=== PATIENT | female | born 1950 | race Caucasian/White ===

== ENCOUNTER 2017-04-23 17:20 | Observation (INO) | payer MEDICARE, OTHER ==
[~2017-04-23] VITALS: Ht 167.6 cm; Wt 113.5 kg
[2017-04-23] VITALS (8 sets, daily range): BP systolic 96–134; BP diastolic 52–66; PULSE 64–75; RESP 18; TEMP 98.5; O2SAT 95–97
[~2017-04-23 17:20] MED LIST: FURO20 PO; JANU50TA PO; LEVO.05 PO; LEXA10TA PO; LISI2.5T3 PO
--- NOTE | 2017-04-23 17:35 | PD ---
Physical Exam Date Seen by Provider: Apr 23, 2017 Time Seen by Provider: 17:33 Narrative 66 YOWF C/O CP AND SOB. H/O CAD . SYMPTOMS TODAY. 04/17 PAIN VS REVIEWED WAITING FOR BED PLACEMENT Data Data Last Documented VS Vital Signs Date Time Temp Pulse Resp B/P Pulse Ox O2 Delivery O2 Flow Rate FiO2 04/23/17 17:23 98.5 75 18 134/66 96 Room Air MDM Supervised Visit with [facility]: Don Baumann Apr 23, 2017 17:35
--- NOTE | 2017-04-23 18:08 | RADRPT ---
EXAM DATE/TIME: 04/23/2017 17:57 [facility] COMPARISON: No previous studies available for comparison. INDICATIONS : Chest pain. MEDICAL HISTORY : A-fib. SURGICAL HISTORY : None. ENCOUNTER: Initial ACUITY: 1 day PAIN SCORE: 8/10 LOCATION: middle chest. FINDINGS: PA and lateral views of the chest demonstrate the lungs to be symmetrically aerated without evidence of mass, infiltrate or effusion. The cardiomediastinal contours are unremarkable. Osseous structure s are intact. Mild atherosclerotic calcifications are noted in the aorta. There is mild atelectasis a nd/or scarring at the lung bases. There are multiple surgical clips and fred in the right breast w ith asymmetry of the breast shadows. CONCLUSION: No acute disease. Casey Lira MD on April 23, 2017 at 18:07 Board Certified Radiologist. This report was verified electronically.
[2017-04-23 19:09] LABS: AUTOMATED NEUTROPHIL # 5.3 TH/MM3 (1.8-7.7); BASOPHIL # 0.1 TH/MM3 (0-0.2); BASOPHIL % 0.7 % (0.0-2.0); EOSINOPHIL # 0.1 TH/MM3 (0-0.4); EOSINOPHIL % 1.5 % (0.0-4.0); HEMATOCRIT 41.7 % (35.0-46.0); HEMO FLAGS DIFF FINAL; LYMPH % 20.9 % (9.0-44.0); LYMPHOCYTE # 1.6 TH/MM3 (1.0-4.8); MEAN CELL VOLUME 90.3 FL (80.0-100.0); MEAN CORPUSCULAR HEMOGLOBIN 30.2 PG (27.0-34.0); MEAN CORPUSCULAR HGB CONC 33.4 % (32.0-36.0); MONO % 9.2 % (0.0-8.0); NEUT % 67.7 % (16.0-70.0); PLATELET COUNT 215 TH/MM3 (150-450); RED BLOOD COUNT 4.62 MIL/MM3 (4.00-5.30); RED CELL DISTRIBUTION WIDTH 15.9 % (11.6-17.2); WHITE BLOOD COUNT 7.8 TH/MM3 (4.0-11.0)
[2017-04-23 19:14] LABS: APTT (PATIENT) 27.1 SEC (24.3-30.1); PROTHROMBIN TIME - PATIENT 10.6 SEC (9.8-11.6)
[2017-04-23 19:24] LABS: ANION GAP 9 MEQ/L (5-15); BICARBONATE 28.8 MEQ/L (21.0-32.0); BLOOD UREA NITROGEN 24 MG/DL (7-18); CHLORIDE 101 MEQ/L (98-107); GLOMERULAR FILTRATION RATE 42 ML/MIN (>89); POTASSIUM 3.6 MEQ/L (3.5-5.1); SODIUM (NA) 139 MEQ/L (136-145)
[2017-04-23 19:28] LABS: CREATINE KINASE 179 U/L (26-192)
--- NOTE | 2017-04-23 19:29 | PD ---
HPI Chief Complaint: Cardiac Complaint Time Seen by Provider: 19:16 Travel History International Travel<30 days: No Contact w/Intl Traveler<30days: No Traveled to known affect area: No History of Present Illness HPI patient has had intermittent chest pressure, substernal, rad to jaw, 04/17, though currently is 11/15...... pmhx: dm, hypothyroid (s/p thyroid removal 4-5weeks ago), cad PFSH Past Medical History Hx Anticoagulant Therapy: Yes (XARELTO) Depression: Yes Heart Rhythm Problems: No Cancer: Yes (BREAST 30 yrs) Cardiac Catheterization: No Cardiovascular Problems: Yes High Cholesterol: No Chemotherapy: Yes Congestive Heart Failure: No Diabetes: Yes Diminished Hearing: No Endocrine: Yes Genitourinary: No Hypertension: Yes Immune Disorder: No Neurologic: No Reproductive: Yes (Ovarian cysts) Respiratory: Yes Immunizations Current: No Thyroid Disease: Yes Ovarian Cysts: Yes Past Surgical History Appendectomy: Yes Section: Yes Cholecystectomy: Yes Coronary Artery Bypass Graft: No Eye Surgery: Yes (cataract) Gynecologic Surgery: Yes (rt mastectomy) Hysterectomy: Yes Other Surgery: Yes (BREAST RECONSTRUCTION AND MASTECTOMY, BUNION REMOVAL) Social History Alcohol Use: Yes (OCC) Tobacco Use: No (QUIT 03/2009) Substance Use: No Allergies-Medications (Allergen,Severity, Reaction): Coded Allergies: diphenhydramine (Unverified Allergy, Intermediate, Restlessness, 04/22/17) Reported Meds & Prescriptions Reported Meds & Active Scripts Active Reported Lasix (Furosemide) 20 Mg Tab 20 Mg PO DAILY Amiodarone (Amiodarone HCl) 200 Mg Tab 200 Mg PO DAILY Xarelto (Rivaroxaban) 20 Mg Tab 20 Mg PO DAILY Synthroid (Levothyroxine Sodium) 88 Mcg Tab 88 Mcg PO DAILY Glimepiride 4 Mg Tab 4 Mg PO BIDAC Metformin (Metformin HCl) 1,000 Mg Tab 1,000 Mg PO BIDPC With meals Review of Systems Except as stated in HPI: all other systems reviewed are Neg Cardiovascular: Positive: Chest Pain or Discomfort, Palpitations, Diaphoresis Physical Exam Narrative GENERAL: SKIN: Warm and dry. HEAD: Atraumatic. Normocephalic. EYES: Pupils equal and round. No scleral icterus. No injection or drainage. ENT: No nasal bleeding or discharge. Mucous membranes pink and moist. NECK: Trachea midline. No JVD. CARDIOVASCULAR: Regular rate and rhythm. RESPIRATORY: No accessory muscle use. Clear to auscultation. Breath sounds equal bilaterally. GASTROINTESTINAL: Abdomen soft, non-tender, nondistended. MUSCULOSKELETAL: Extremities without clubbing, cyanosis, or edema. No obvious deformities. NEUROLOGICAL: Awake and alert. No obvious cranial nerve deficits. Motor grossly within normal limits. Five out of 5 muscle strength in the arms and legs. Normal speech. PSYCHIATRIC: Appropriate mood and affect; insight and judgment normal. Data Data Last Documented VS Orders Orders Electrocardiogram (04/23/17 17:35) Complete Blood Count With Diff (04/23/17 17:35) Basic Metabolic Panel (Bmp) (04/23/17 17:35) Ckmb (Isoenzyme) Profile (04/23/17 17:35) Troponin I (04/23/17 17:35) Iv Access Insert/Monitor (04/23/17 17:35) Ecg Monitoring (04/23/17 17:35) Oxygen Administration (04/23/17 17:35) Oximetry (04/23/17 17:35) Act Partial Throm Time (Ptt) (04/23/17 17:35) Prothrombin Time / Inr (Pt) (04/23/17 17:35) B-Type Natriuretic Peptide (04/23/17 17:35) Chest, Pa & Lat (04/23/17 17:35) D-Dimer (04/23/17 19:17) Magnesium (Mg) (04/23/17 19:17) Thyroid Stimulating Hormone (04/23/17 19:17) CKMB (04/23/17 18:30) CKMB% (04/23/17 18:30) Ct Pulmonary Angiogram (04/23/17 20:56) Sodium Chlorid 0.9% 500 Ml Inj (Ns 500 M (04/23/17 21:00) Admit Order (Ed Use Only) (04/23/17 22:56) Labs Laboratory Tests Test 04/23/17 18:30 White Blood Count 7.8 TH/MM3 Red Blood Count 4.62 MIL/MM3 Hemoglobin 13.9 GM/DL Hematocrit 41.7 % Mean Corpuscular Volume 90.3 FL Mean Corpuscular Hemoglobin 30.2 PG Mean Corpuscular Hemoglobin Concent 33.4 % Red Cell Distribution Width 15.9 % Platelet Count 215 TH/MM3 Mean Platelet Volume 8.2 FL Neutrophils (%) (Auto) 67.7 % Lymphocytes (%) (Auto) 20.9 % Monocytes (%) (Auto) 9.2 % Eosinophils (%) (Auto) 1.5 % Basophils (%) (Auto) 0.7 % Neutrophils # (Auto) 5.3 TH/MM3 Lymphocytes # (Auto) 1.6 TH/MM3 Monocytes # (Auto) 0.7 TH/MM3 Eosinophils # (Auto) 0.1 TH/MM3 Basophils # (Auto) 0.1 TH/MM3 CBC Comment DIFF FINAL Differential Comment Prothrombin Time 10.6 SEC Prothromb Time International Ratio 1.0 RATIO Activated Partial Thromboplast Time 27.1 SEC D-Dimer Quantitative (PE/DVT) 0.85 MG/L FEU Blood Urea Nitrogen 24 MG/DL Creatinine 1.26 MG/DL Random Glucose 77 MG/DL Calcium Level 9.3 MG/DL Sodium Level 139 MEQ/L Potassium Level 3.6 MEQ/L Chloride Level 101 MEQ/L Carbon Dioxide Level 28.8 MEQ/L Anion Gap 9 MEQ/L Estimat Glomerular Filtration Rate 42 ML/MIN Magnesium Level 2.2 MG/DL Total Creatine Kinase 179 U/L Creatine Kinase MB 2.5 NG/ML Troponin I LESS THAN 0.02 NG/ML B-Type Natriuretic Peptide 3 PG/ML Thyroid Stimulating Hormone 3rd Gen 24.000 uIU/ML MDM Medical Decision Making Medical Screen Exam Complete: Yes Emergency Medical Condition: Yes Medical Record Reviewed: Yes Interpretation(s) nsr, 69, nl intervals, nonspec stt changes, no stemi pattern Differential Diagnosis chf v pulm edema v pna v electrolyte abnl Narrative Course PATIENT CXR DID NOT SHOW E/O PULM EDEMA/PNA, PATIENT WILL BE IN FOR OBS AT [facility] FOR ADDITIONAL WORKUP Diagnosis Primary Impression: cp r/o mi Admitting Information Admitting Physician Requests: Observation Justice Melgar MD Apr 23, 2017 19:29
[2017-04-23] MEDS ORDERED: SYNT88TA PO (19:38)
[2017-04-23] MEDS ORDERED: GLIM4TAB PO (19:38)
[2017-04-23] MEDS ORDERED: FURO1TAB62 PO (19:38)
[2017-04-23] MEDS ORDERED: XARE20TA PO (19:38)
[2017-04-23] MEDS ORDERED: AMIO200T PO (19:38)
[2017-04-23] MEDS ORDERED: METF1000 PO (19:38)
[2017-04-23 19:40] LABS: CKMB 2.5 NG/ML (0.5-3.6)
[2017-04-23 20:20] LABS: MAGNESIUM 2.2 MG/DL (1.5-2.5)
[2017-04-23] MEDS ORDERED: SODIUM CHLORID 0.9% 500 ML INJ 500 ML IV ONE (21:00)
--- NOTE | 2017-04-23 22:32 | RADRPT ---
EXAM DATE/TIME: 04/23/2017 21:51 [facility] COMPARISON: CT PULMONARY ANGIOGRAM, May 03, 2016, 13:42. INDICATIONS : Chest pain with shortness of breath tingling in jaw . IV CONTRAST: 75 cc Omnipaque 350 (iohexol) IV RADIATION DOSE: 13.73 CTDIvol (mGy) MEDICAL HISTORY : Congestive hearrt failure. Carcinoma, breast. Diabetes mellitus type 2. SURGICAL HISTORY : Mastectomy, bilateral. Thyroidectomy. ENCOUNTER: Initial ACUITY: 3 days PAIN SCALE: 6/10 LOCATION: Bilateral chest TECHNIQUE: Volumetric scanning of the chest was performed using a pulmonary embolism protocol MIP images were re constructed. Using automated exposure control and adjustment of the mA and/or kV according to patien t size, radiation dose was kept as low as reasonably achievable to obtain optimal diagnostic quality images. DICOM format image data is available electronically for review and comparison. Follow-up recommendations for detected pulmonary nodules are based at a minimum on nodule size and pa tient risk factors according to Fleischner Society Guidelines. FINDINGS: PULMONARY ARTERIES: No filling defects are seen in the pulmonary arteries through the segmental level. LUNGS: There is linear suspected atelectasis at the lung bases being more prominent on the right. PLEURAE: There is no pleural thickening or pleural effusion. MEDIASTINUM: There is good visualization of the great vessels of the middle mediastinum. No evidence of mediastin al or hilar adenopathy/mass. MUSCULOSKELETAL: Within normal limits for patient age. MISCELLANEOUS: The visualized upper abdominal organs demonstrate no acute abnormality. There is a calcified granulom a in the liver. The patient is status post cholecystectomy. Clips are seen in the right breast region . CONCLUSION: 1. No pulmonary emboli. 2. Bibasilar areas of atelectasis. Sundeep Arellano MD on April 23, 2017 at 22:27 Board Certified Radiologist. This report was verified electronically.
[2017-04-23] MEDS ORDERED: ONDANSETRON HCL 4 MG/2 ML VIAL IV PRN (23:00)
[2017-04-23] MEDS ORDERED: NITROGLYCERIN 0.4 MG SL 25 TABS/BTL SL PRN (23:00)
[2017-04-23] MEDS ORDERED: SODIUM CHLORIDE 0.9% FLUSH 10 ML FLUSH IV FLUSH PRN (23:00)
[2017-04-23] MEDS ORDERED: MORPHINE SULFATE 4 MG/ML INJ IV PRN (23:00)
[2017-04-24 00:30] LABS: CREATINE KINASE 154 U/L (26-192)
[2017-04-24 00:42] LABS: CKMB 2.5 NG/ML (0.5-3.6)
[2017-04-24 02:00] VITALS: BP 102/50; PULSE 65; RESP 16; O2SAT 97
[2017-04-24 03:11] LABS: CREATINE KINASE 140 U/L (26-192)
[2017-04-24 05:56] VITALS: BP 117/69; PULSE 75; RESP 16; O2SAT 100
[2017-04-24 07:52] VITALS: BP 128/60; PULSE 71; RESP 22; TEMP 97.8; O2SAT 95
[2017-04-24] MEDS ORDERED: SODIUM CHLORIDE 0.9% FLUSH 10 ML FLUSH IV FLUSH SCH (09:00)
[2017-04-24] MEDS ORDERED: ASPIRIN 325 MG TAB PO SCH (09:00)
[2017-04-24 10:20] VITALS: BP 127/61; PULSE 65; RESP 20; TEMP 96; O2SAT 93
[2017-04-24] MEDS ORDERED: LEVOTHYROXINE SODIUM 88 MCG TAB PO SCH (11:30)
[2017-04-24] MEDS ORDERED: AMIODARONE 200 MG TAB PO SCH (11:30)
[2017-04-24] MEDS ORDERED: FUROSEMIDE 20 MG TAB PO SCH (11:30)
[2017-04-24] MEDS ORDERED: RIVAROXABAN 20 MG TAB PO SCH (11:30)
[2017-04-24 12:00] VITALS: BP 115/64; PULSE 67; RESP 20; TEMP 96.3; O2SAT 93
--- NOTE | 2017-04-24 12:26 | HHI.DCPOC ---
Discharge Care Plan Diagnosis: (1) Atypical chest pain (2) Hypothyroidism (3) DM (diabetes mellitus) Goals to Promote Your Health HOLD METFORMIN FOR TWO DAYS. * To prevent worsening of your condition and complications * To maintain your health at the optimal level Directions to Meet Your Goals Take your medications as prescribed Follow your dietary instruction Follow activity as directed Keep your appointments as scheduled Take your immunizations and boosters as scheduled If your symptoms worsen call your PCP, if no PCP go to Urgent Care Center or Emergency Room Smoking is Dangerous to Your Health. Avoid second hand smoke Call the 24-hour hour crisis hotline for domestic abuse at [facility] Monet Apr 24, 2017 12:26
--- NOTE | 2017-04-24 15:00 | EKG ---
Date Performed: 04/24/2017 Time Performed: 02:28:14 PTAGE: 66 years EKG: Sinus rhythm LOW QRS VOLTAGE IN PRECORDIAL LEADS NONSPECIFIC T-WAVE ABNORMALITY BORDERLINE ECG PREVIOUS TRACING : 04/23/2017 23.24 Since previous tracing, no significant change noted DOCTOR: Sha Wilson Interpretating Date/Time 04/24/2017 14:59:37
--- NOTE | 2017-04-24 15:07 | EKG ---
Date Performed: 04/23/2017 Time Performed: 23:24:54 PTAGE: 66 years EKG: Sinus rhythm LOW QRS VOLTAGE IN PRECORDIAL LEADS NONSPECIFIC T-WAVE ABNORMALITY BORDERLINE ECG PREVIOUS TRACING : 04/23/2017 18.21 Since previous tracing, no significant change noted DOCTOR: Sha Wilson Interpretating Date/Time 04/24/2017 15:06:53
--- NOTE | 2017-04-24 15:11 | HHI.HP ---
[facility] Primary Care Physician Uday Ontiveros MD Chief Complaint Chest pain History of Present Illness This is a 66-year-old female that presents to ED with a complaint of 2-3 months of chest discomfort and shortness of breath. This has been intermittent and usually lasting about 5 minutes but yesterday was more intense and lasted longer. She the symptoms last about 20 minutes and also noticed some discomfort in both sides of her jaw. Currently feeling okay. States that she follows Dr. Lopez and has an appointment for May 16 for 2-D echo. Denies recent illness. Denies fevers or chills. She had a thyroidectomy 5-6 weeks ago and was having her medications adjusted. States her Synthroid was just increased 3 weeks ago. Her TSH in the ER was 24. Review of Systems General: Patient denies fevers, chills recent, and recent travel HEENT: Patient denies headache, sore throat, difficulty swallowing. Cardiovascular: Has the chest discomfort as mentioned above. Denies sensation of heart beating rapidly or irregularly. No syncope. Respiratory: Intermittent shortness of breath. Denies inspirational chest discomfort. Denies coughing wheezing or hemoptysis. GI: Patient denies nausea, vomiting, diarrhea, abdominal pain, bloody stools. Musculoskeletal: Patient denies joint pain or edema. Denies calf pain or edema. Neurovascular: Patient denies numbness, tingling, weakness in extremities. Denies headache. Endocrine: Denies polyuria and polydipsia. Hematologic: Denies easy bruising. Skin: Denies rash or itching. Past Family Social History Allergies: Coded Allergies: diphenhydramine (Unverified Allergy, Intermediate, Restlessness, 04/22/17) Past Medical History Hypothyroidism and recent thyroidectomy. Paroxysmal atrial fibrillation. Diabetes. Denies hypertension, CAD, and hyperlipidemia. Past Surgical History Recent thyroidectomy. Mastectomy, cholecystectomy, , and appendectomy. Reported Medications Reported Meds & Active Scripts Active Reported Lasix (Furosemide) 20 Mg Tab 20 Mg PO DAILY Amiodarone (Amiodarone HCl) 200 Mg Tab 200 Mg PO DAILY Xarelto (Rivaroxaban) 20 Mg Tab 20 Mg PO DAILY Synthroid (Levothyroxine Sodium) 88 Mcg Tab 88 Mcg PO DAILY Glimepiride 4 Mg Tab 4 Mg PO BIDAC Metformin (Metformin HCl) 1,000 Mg Tab 1,000 Mg PO BIDPC With meals Social History At and does not smoke or use illicit drugs. Has occasional alcohol. Physical Exam Vital Signs Vital Signs Date Time Temp Pulse Resp B/P Pulse Ox O2 Delivery O2 Flow Rate FiO2 04/24/17 12:00 96.3 67 20 115/64 93 04/24/17 10:20 96.0 65 20 127/61 93 04/24/17 07:52 97.8 71 22 128/60 95 Room Air 04/24/17 05:56 75 16 117/69 100 Room Air 04/24/17 02:00 65 16 102/50 97 Room Air 04/23/17 23:37 95 04/23/17 23:30 67 18 96/53 96 Room Air 04/23/17 22:30 70 18 111/57 97 Room Air 04/23/17 21:30 66 18 100/52 96 Room Air 04/23/17 20:30 66 18 115/59 96 Room Air 04/23/17 19:30 18 95 Room Air 04/23/17 19:30 96 Room Air 04/23/17 19:25 63 18 95 Room Air 04/23/17 19:25 64 18 113/61 96 Room Air 04/23/17 17:23 98.5 75 18 134/66 96 Room Air Physical Exam GENERAL: This is a well-nourished, well-developed patient, in no apparent distress. Patient speaks in clear complete sentences. Patient is pleasant. HEENT: Head is atraumatic and normocephalic. Neck is supple without lymphadenopathy and trachea is midline. No JVD or carotid bruits. CARDIOVASCULAR: Regular rate and rhythm without murmurs, gallops, or rubs. RESPIRATORY: Clear to auscultation. Breath sounds equal bilaterally. No wheezes , rales, or rhonchi. Chest wall is tender. No use of accessory muscles. GASTROINTESTINAL: Abdomen is nontender, nondistended. Abdomen soft. No obvious pulsatile mass or bruit. No CVA tenderness. Strong femoral pulses bilaterally. Normal bowel sounds in all quadrants. MUSCULOSKELETAL: Patient is moving upper and lower extremities freely. No calf tenderness or edema, no Homans sign. Strong pulses in upper and lower extremities. NEUROLOGICAL: Patient is alert and oriented. Cranial nerves 2-12 are grossly intact. No focal deficits and speech is clear. SKIN: No rash and turgor is normal. Laboratory Laboratory Tests Test 04/23/17 04/23/17 04/24/17 18:30 23:25 02:35 White Blood Count 7.8 Red Blood Count 4.62 Hemoglobin 13.9 Hematocrit 41.7 Mean Corpuscular Volume 90.3 Mean Corpuscular Hemoglobin 30.2 Mean Corpuscular Hemoglobin 33.4 Concent Red Cell Distribution Width 15.9 Platelet Count 215 Mean Platelet Volume 8.2 Neutrophils (%) (Auto) 67.7 Lymphocytes (%) (Auto) 20.9 Monocytes (%) (Auto) 9.2 Eosinophils (%) (Auto) 1.5 Basophils (%) (Auto) 0.7 Neutrophils # (Auto) 5.3 Lymphocytes # (Auto) 1.6 Monocytes # (Auto) 0.7 Eosinophils # (Auto) 0.1 Basophils # (Auto) 0.1 CBC Comment DIFF FINAL Differential Comment Prothrombin Time 10.6 Prothromb Time International 1.0 Ratio Activated Partial 27.1 Thromboplast Time D-Dimer Quantitative (PE/DVT) 0.85 Sodium Level 139 Potassium Level 3.6 Chloride Level 101 Carbon Dioxide Level 28.8 Anion Gap 9 Blood Urea Nitrogen 24 Creatinine 1.26 Estimat Glomerular Filtration 42 Rate Random Glucose 77 Calcium Level 9.3 Magnesium Level 2.2 Total Creatine Kinase 179 154 140 Creatine Kinase MB 2.5 2.5 2.0 Troponin I LESS THAN 0.02 LESS THAN 0.02 LESS THAN 0.02 B-Type Natriuretic Peptide 3 Thyroid Stimulating Hormone 24.000 3rd Gen Result Diagram: 04/23/17 1830 04/23/17 1830 Imaging Last [address] Angiography 04/23/172055 Signed Impressions: Service Date/Time: Sunday, April 23, 2017 21:51 - CONCLUSION: 1. No pulmonary emboli. 2. Bibasilar areas of atelectasis. Sundeep Arellano MD Chest X-Ray 04/23/17 1735 Signed Impressions: Service Date/Time: Sunday, April 23, 2017 17:57 - CONCLUSION: No acute disease. Casey Lira MD Course EKGs have sinus rhythm without significant ST segment depressions or elevations. Assessment and Plan Assessment and Plan * Atypical chest pain: Patient has had serial cardiac enzymes and EKGs for ruling out purposes and was seen by Dr. Wilson of cardiology in the chest pain center. I discussed this patient also with her soda fountain clerk Dr. Lopez. At this time patient will be discharged home with instructions to follow-up with her soda fountain clerk. Return to ED for interval issues. * Diabetes: Hold her metformin for 2 days that she had a contrast study. Otherwise resume medications and follow diabetic diet. * Hypothyroidism: Patient was given a copy of her TSH to discuss with her commercial loan analyst to determine if dose needs to be adjusted. * History of paroxysmal atrial fibrillation: She has been sinus rhythm in the chest pain center. She should continue current medication and follow-up with her soda fountain clerk. Patient is stable at this time. She is agreeable to this plan. Boyd Monet Apr 24, 2017 15:11
--- NOTE | 2017-04-24 15:14 | EKG ---
Date Performed: 04/23/2017 Time Performed: 18:21:13 PTAGE: 66 years EKG: Sinus rhythm LOW QRS VOLTAGE IN PRECORDIAL LEADS NONSPECIFIC T-WAVE ABNORMALITY BORDERLINE ECG PREVIOUS TRACING : 04/23/2017 18.20 DOCTOR: Sha Wilson Interpretating Date/Time 04/25/2017 08:05:21
== END 2017-04-24 13:01 | disposition home or self-care (01) ==
LOC: NEPC 17:20 → NEDA 22:58 → NEDH 04-24 02:58 → NEPFCDU 04-24 09:51
PROVIDERS: ADMIT Internal Medicine Cardiovascular Disease; ATTEND Internal Medicine Cardiovascular Disease
DX: R07.89 Other chest pain (principal); R06.02 Shortness of breath; E11.9 Type 2 diabetes mellitus without complications; E03.9 Hypothyroidism, unspecified; I10 Essential (primary) hypertension; R20.2 Paresthesia of skin; I48.91 Unspecified atrial fibrillation; F32.9 Major depressive disorder, single episode, unspecified; I25.10 Atherosclerotic heart disease of native coronary artery without angina pectoris; Z79.01 Long term (current) use of anticoagulants; Z79.84 Long term (current) use of oral hypoglycemic drugs; Z87.891 Personal history of nicotine dependence; Z85.3 Personal history of malignant neoplasm of breast; Z79.899 Other long term (current) drug therapy
CPT/HCPCS: 71020; 71275; 80048; 82550; 82552; 83735; 83880; 84443; 84484; 85025; 85379; 85610; 85730; 93005; 96360; 99285; G0378; J7040

== ENCOUNTER 2018-02-25 13:29 | Emergency (ER) | payer MEDICARE, OTHER ==
[~2018-02-25] VITALS: Ht 167.6 cm; Wt 105.0 kg
[~2018-02-25 13:29] MED LIST changes: +AMIO200T PO; +FURO1TAB62 PO; -FURO20 PO; +GLIM4TAB PO; -JANU50TA PO; -LEVO.05 PO; -LEXA10TA PO; -LISI2.5T3 PO; +METF1000 PO; +SYNT88TA PO; +XARE20TA PO
[2018-02-25 13:40] VITALS: BP 133/60; PULSE 80; RESP 18; TEMP 97.5; O2SAT 95
[2018-02-25 13:41] VITALS: BP 170/78; PULSE 78; RESP 16; TEMP 98.4; O2SAT 96
--- NOTE | 2018-02-25 13:42 | PD ---
HPI Chief Complaint: Edema Time Seen by Provider: 13:42 Travel History International Travel<30 days: No Contact w/Intl Traveler<30days: No Traveled to known affect area: No History of Present Illness HPI 67-year-old female came to the emergency room with history of bilateral leg swelling that has been more pronounced for past 3 days. Patient says she has history of her ankle swelling up but this has been worse than usual. It is also giving her discomfort to her feet especially the dorsal aspect near the toes. No history of fever or chills. Patient has history of A. fib and is on flecainide and Xarelto. Her it field technician is Dr. Lopez. Vital signs were stable. Patient says she feels like the fluid is building up and is making her short of breath. Apparently patient called her primary care who asked her to come to the emergency room. Patient has been taking her Xarelto like she supposed to and she is on 20 mg once a day. No history of chest pain. PFSH Past Medical History Narrative Medical List of her past medical, surgical, social and family history is reviewed from the nursing note. Hx Anticoagulant Therapy: Yes (XARELTO) Depression: Yes Heart Rhythm Problems: Yes Cancer: Yes (BREAST 30 yrs) Cardiac Catheterization: No Cardiovascular Problems: Yes (A-FIB) High Cholesterol: No Chemotherapy: Yes Congestive Heart Failure: Yes Diabetes: Yes Diminished Hearing: No Endocrine: Yes Genitourinary: No Hypertension: Yes Immune Disorder: No Neurologic: No Reproductive: Yes (Ovarian cysts) Respiratory: Yes (EARLY COPD) Immunizations Current: No Thyroid Disease: Yes ?: Not Ovarian Cysts: Yes Past Surgical History Appendectomy: Yes Section: Yes Cholecystectomy: Yes Coronary Artery Bypass Graft: No Endocrine Surgery: Yes (THYROIDECTOMY) Eye Surgery: Yes (cataract) Gynecologic Surgery: Yes (rt mastectomy) Hysterectomy: Yes Other Surgery: Yes (BREAST RECONSTRUCTION AND MASTECTOMY, BUNION REMOVAL) Social History Alcohol Use: No Tobacco Use: No (QUIT 03/2009) Substance Use: No Allergies-Medications (Allergen,Severity, Reaction): Coded Allergies: diphenhydramine (Unverified Allergy, Intermediate, Restlessness, 02/25/18) Comments List of her allergies reviewed from the nursing note. Reported Meds & Prescriptions Reported Meds & Active Scripts Active Reported Flecainide (Flecainide Acetate) 50 Mg Tab 50 Mg PO BID Trulicity Inj (Dulaglutide Inj) 1.5 Mg/0.5 Ml Pen 1.5 Mg SQ Q7D Synthroid (Levothyroxine Sodium) 150 Mcg Tab 150 Mcg PO DAILY Lasix (Furosemide) 20 Mg Tab 20 Mg PO DAILY Xarelto (Rivaroxaban) 20 Mg Tab 20 Mg PO HS Narrative Medication List of her home medications reviewed from the nursing note. Review of Systems Except as stated in HPI: all other systems reviewed are Neg Musculoskeletal: Positive: Edema Physical Exam Narrative GENERAL: Awake, alert, obese, mild distress SKIN: Focused skin assessment warm/dry. HEAD: Atraumatic. Normocephalic. EYES: Pupils equal and round. No scleral icterus. No injection or drainage. ENT: No nasal bleeding or discharge. Mucous membranes pink and moist. NECK: Trachea midline. No JVD. CARDIOVASCULAR: Regular rate and rhythm. No murmur appreciated. RESPIRATORY: No accessory muscle use. Clear to auscultation. Breath sounds equal bilaterally. GASTROINTESTINAL: Abdomen soft, non-tender, nondistended. Hepatic and splenic margins not palpable. MUSCULOSKELETAL: No obvious deformities. No clubbing. No cyanosis. Bilateral pedal edema NEUROLOGICAL: Awake and alert. No obvious cranial nerve deficits. Motor grossly within normal limits. Normal speech. PSYCHIATRIC: Appropriate mood and affect; insight and judgment normal. Data Data Last Documented VS Orders Orders Electrocardiogram (02/25/18 13:51) Basic Metabolic Panel (Bmp) (02/25/18 13:51) B-Type Natriuretic Peptide (02/25/18 13:51) Complete Blood Count With Diff (02/25/18 13:51) Magnesium (Mg) (02/25/18 13:51) Prothrombin Time / Inr (Pt) (02/25/18 13:51) Act Partial Throm Time (Ptt) (02/25/18 13:51) Troponin I (02/25/18 13:51) Ecg Monitoring (02/25/18 13:51) Bilateral Bp Monitoring (02/25/18 13:51) Iv Access Insert/Monitor (02/25/18 13:51) Oximetry (02/25/18 13:51) Oxygen Administration (02/25/18 13:51) Sodium Chloride 0.9% Flush (Ns Flush) (02/25/18 14:00) Chest, Pa & Lat (02/25/18 13:51) Ed Discharge Order (02/25/18 14:50) Labs Laboratory Tests Test 02/25/18 13:55 White Blood Count 7.6 TH/MM3 Red Blood Count 4.92 MIL/MM3 Hemoglobin 14.6 GM/DL Hematocrit 43.9 % Mean Corpuscular Volume 89.3 FL Mean Corpuscular Hemoglobin 29.7 PG Mean Corpuscular Hemoglobin Concent 33.3 % Red Cell Distribution Width 14.4 % Platelet Count 250 TH/MM3 Mean Platelet Volume 7.6 FL Neutrophils (%) (Auto) 70.6 % Lymphocytes (%) (Auto) 18.0 % Monocytes (%) (Auto) 9.5 % Eosinophils (%) (Auto) 1.4 % Basophils (%) (Auto) 0.5 % Neutrophils # (Auto) 5.4 TH/MM3 Lymphocytes # (Auto) 1.4 TH/MM3 Monocytes # (Auto) 0.7 TH/MM3 Eosinophils # (Auto) 0.1 TH/MM3 Basophils # (Auto) 0.0 TH/MM3 CBC Comment DIFF FINAL Differential Comment Prothrombin Time 11.0 SEC Prothromb Time International Ratio 1.1 RATIO Activated Partial Thromboplast Time 29.5 SEC Blood Urea Nitrogen 25 MG/DL Creatinine 1.20 MG/DL Random Glucose 113 MG/DL Calcium Level 9.5 MG/DL Magnesium Level 2.4 MG/DL Sodium Level 139 MEQ/L Potassium Level 3.6 MEQ/L Chloride Level 100 MEQ/L Carbon Dioxide Level 32.2 MEQ/L Anion Gap 7 MEQ/L Estimat Glomerular Filtration Rate 45 ML/MIN Troponin I LESS THAN 0.02 NG/ML B-Type Natriuretic Peptide 5 PG/ML MDM Medical Decision Making Medical Screen Exam Complete: Yes Emergency Medical Condition: Yes Medical Record Reviewed: Yes Interpretation(s) Twelve-lead EKG was reviewed by me. Normal sinus rhythm, left axis deviation, questionable old inferior TX, poor R-wave progression. Heart rate of 73 bpm. Differential Diagnosis Congestive heart failure, venous insufficiency, pedal edema Narrative Course 3:09 PM blood test results are back and BNP is within normal limit. The BUN/ creatinine was slightly elevated. Chest x-ray is negative. I am not concerned about DVT since patient is on Xarelto at the FDA recommended PE/DVT prophylaxis dose. I have explained this to the patient. I do not recommend going up on the Lasix since there is no evidence of congestive heart failure on my workup. In fact patient is developing some renal insufficiency which may be worsened by going up on the Lasix. I have asked her to follow-up with her it field technician. Patient will be discharged. Procedures EKG Prior to Arrival: No Diagnosis Primary Impression: Leg edema Additional Instructions: Please follow-up with your it field technician. Return to ER if condition worsens any other new concerns. Keep the leg elevated above the heart level as much as possible. Wear compression stockings. Disposition: 01 DISCHARGE HOME Condition: Stable Sneha Ac MD Feb 25, 2018 13:42
[2018-02-25] MEDS ORDERED: DULA0.5I SQ (13:50)
[2018-02-25] MEDS ORDERED: FLEC1TAB8 PO (13:50)
[2018-02-25] MEDS ORDERED: LEVO.15 PO (13:50)
[2018-02-25] MEDS ORDERED: SODIUM CHLORIDE 0.9% FLUSH 10 ML FLUSH IVF PRN (14:00)
[2018-02-25 14:01] VITALS: BP 134/62; PULSE 81; RESP 18; O2SAT 95
[2018-02-25 14:04] LABS: AUTOMATED NEUTROPHIL # 5.4 TH/MM3 (1.8-7.7); BASOPHIL % 0.5 % (0.0-2.0); EOSINOPHIL # 0.1 TH/MM3 (0-0.4); EOSINOPHIL % 1.4 % (0.0-4.0); HEMATOCRIT 43.9 % (35.0-46.0); HEMOGLOBIN 14.6 GM/DL (11.6-15.3); LYMPHOCYTE # 1.4 TH/MM3 (1.0-4.8); MEAN CELL VOLUME 89.3 FL (80.0-100.0); MEAN CORPUSCULAR HEMOGLOBIN 29.7 PG (27.0-34.0); MEAN CORPUSCULAR HGB CONC 33.3 % (32.0-36.0); MEAN PLATELET VOLUME 7.6 FL (7.0-11.0); MONO % 9.5 % (0.0-8.0); MONOCYTE # 0.7 TH/MM3 (0-0.9); NEUT % 70.6 % (16.0-70.0); PLATELET COUNT 250 TH/MM3 (150-450); RED BLOOD COUNT 4.92 MIL/MM3 (4.00-5.30); RED CELL DISTRIBUTION WIDTH 14.4 % (11.6-17.2); WHITE BLOOD COUNT 7.6 TH/MM3 (4.0-11.0)
[2018-02-25 14:11] LABS: CHLORIDE 100 MEQ/L (98-107); SODIUM (NA) 139 MEQ/L (136-145)
[2018-02-25 14:14] LABS: BICARBONATE 32.2 MEQ/L (21.0-32.0); BLOOD UREA NITROGEN 25 MG/DL (7-18); CALCIUM 9.5 MG/DL (8.5-10.1); GLUCOSE,RANDOM 113 MG/DL (74-106); MAGNESIUM 2.4 MG/DL (1.5-2.5)
[2018-02-25 14:17] LABS: INTERNATIONAL NORMALIZED RATIO 1.1 RATIO
[2018-02-25 14:18] LABS: GLOMERULAR FILTRATION RATE 45 ML/MIN (>89)
--- NOTE | 2018-02-25 14:21 | RADRPT ---
EXAM DATE: 02/25/2018 2:10 PM EDT AGE/SEX: 67 years / Female INDICATIONS: Bilateral lower extremity edema right more so than the left. Mild shortness of breath. CLINICAL DATA: This is the patient's initial encounter. Patient reports that signs and symptoms have been present for 2 days and indicates a pain score of 0/10. MEDICAL/SURGICAL HISTORY: Chronic obstructive pulmonary disease. Carcinoma, breast. Congestiv e heart failure. Thyroid disease. A- fib. Ovarian cyst. Diabetic. Former smoker. Chemotherapy. Appe ndectomy. Total knee replacement, left. Mastectomy, right. Cholecystectomy. Thyroidectomy. COMPARISON: [facility] [place]ST PA & LAT, 04/23/2017. . FINDINGS: Mild discoid atelectasis/scarring at the left lung base unchanged from prior exam. No significant new focal pleural or parenchymal opacities. The cardiomediastinal contours are unremarkable. Osseous str uctures are intact. CONCLUSION: 1. No acute abnormality or significant interval change. Electronically signed by: Garrett Stratton MD 02/25/2018 2:20 PM EDT
[2018-02-25 14:22] LABS: TROPONIN I LESS THAN 0.02 NG/ML (0.02-0.05)
[2018-02-25 14:44] VITALS: BP 107/64; PULSE 72; RESP 18; O2SAT 96
--- NOTE | 2018-02-26 18:46 | EKG ---
Date Performed: 02/25/2018 Time Performed: 14:21:59 PTAGE: 67 years EKG: Sinus rhythm LOW QRS VOLTAGE IN PRECORDIAL LEADS POSSIBLE ANTERIOR MYOCARDIAL INFARCTION BORDERLINE ECG Since the PREVIOUS TRACING , no significant change noted PREVIOUS TRACIN04/24/2017 02.28 DOCTOR: Nadya Ahn Interpretating Date/Time 02/26/2018 18:44:08
== END 2018-02-25 15:13 | disposition home or self-care (01) ==
LOC: PHED 13:29
DX: M79.89 Other specified soft tissue disorders (principal); I11.0 Hypertensive heart disease with heart failure; I50.9 Heart failure, unspecified; I48.91 Unspecified atrial fibrillation; Z79.01 Long term (current) use of anticoagulants; Z79.899 Other long term (current) drug therapy; Z87.891 Personal history of nicotine dependence
CPT/HCPCS: 71046; 80048; 83735; 83880; 84484; 85025; 85610; 85730; 93005; 99285